=== PATIENT | male | born 1960 | race Hispanic/Latino ===

== ENCOUNTER 2022-01-24 02:30 | Emergency (ER) | payer SELFPAY ==
[2022-01-24] MEDS ORDERED: ASPIRIN 325 MG TAB PO ONE (02:38)
[2022-01-24 03:03] VITALS: BP 184/101
--- NOTE | 2022-01-24 03:06 | XRay Report ---
CHEST 2 VIEWS INDICATION / CLINICAL INFORMATION: CHEST PAIN. COMPARISON: None available. FINDINGS: SUPPORT DEVICES: None. HEART / MEDIASTINUM: Heart size and mediastinal contour appear within normal limits. LUNGS / PLEURA: No significant pulmonary or pleural abnormality. No pneumothorax. BONES: No significant osseous abnormality. ADDITIONAL FINDINGS: No significant additional findings. IMPRESSION: 1. No active cardiopulmonary disease. Signer Name: Jules Gonsalez II, MD Signed: 01/24/2022 3:02 AM Workstation Name: [id number]
[2022-01-24 03:29] LABS: Basophils # (Auto) 0.1 K/mm3 (0.0-0.1); Basophils % (Auto) 0.9 % (0.0-1.8); Eosinophils # (Auto) 0.1 K/mm3 (0.0-0.4); Eosinophils % (Auto) 1.4 % (0.0-4.3); Hematocrit 42.1 % (35.5-45.6); Hemoglobin 14.4 gm/dl (11.8-15.2); Lymphocytes # (Auto) 1.9 K/mm3 (1.2-5.4); Lymphocytes % (Auto) 21.7 % (13.4-35.0); Mean Corpuscular HGB Conc 34 % (32-34); Mean Corpuscular Volume 87 fl (84-94); Monocytes # (Auto) 0.9 K/mm3 (0.0-0.8); Monocytes % (Auto) 10.2 % (0.0-7.3); Platelet Count 129 K/mm3 (140-440); Red Blood Count 4.85 M/mm3 (3.65-5.03); Red Cell Distribution Width 14.6 % (13.2-15.2)
[2022-01-24 03:41] LABS: Alanine Aminotransferase 22 units/L (7-56); Albumin 4.2 g/dL (3.9-5); BUN/Creatinine Ratio 13; Blood Urea Nitrogen 10 mg/dL (9-20); Calcium 9.4 mg/dL (8.4-10.2); Hemolysis Index 9
--- NOTE | 2022-01-24 10:40 | Electrocardiograph Report ---
[facility] Test Date: 2022-01-24 Test Time: 02:41:05 Pat Name: YASH BERRY Department: Room: Gender: M Stationary Engineer Refrigeration: KRISTEN : 1960 Requested By: ED DOC Order Number: [id number] Reading MD: Alfredo Bennett Measurements Intervals [place] Rate: 102 P: 56 DC: 188 QRS: -4 QRSD: 103 T: 92 QT: 359 QTc: 457 Interpretive Statements Sinus rhythm Multiple premature complexes, vent & supraven Nonspecific T abnormalities, lateral leads No previous ECG available for comparison Electronically Signed On 01-24-2022 10:40:27 EDT by Alfredo Bennett
== END 2022-01-24 11:10 | disposition left against medical advice (07) ==
LOC: ED 02:30
DX: R07.89 Other chest pain (principal); Z53.21 Procedure and treatment not carried out due to patient leaving prior to being seen by health care provider
CPT/HCPCS: 36415; 71046; 80053; 84484; 85025; 93005